=== PATIENT | female | born 1955 | race Asian ===

== ENCOUNTER 2017-09-15 09:21 | Outpatient (CLI) | payer OTHER ==
[~2017-09-15 09:21] MED LIST: AMLO5TAB PO; ASA LO-DOSE81 MG PO; B-122000 MCG PO; BENADRYL25 M1 PO; DICL75TA4 PO; GLIP10TA55 PO; HYDR-3182 PO; LISI20TA31 PO; METF500T PO; PRAVACHOL20 MG PO; RANI150T78 PO; ROBAXIN-750750 MG PO; SINGULAIR10 MG PO; TRAM50TA PO
== END 2017-09-15 11:00 | disposition home or self-care (01) ==
LOC: MAMMO 09:21
DX: Z12.31 Encounter for screening mammogram for malignant neoplasm of breast (principal)

== ENCOUNTER 2017-11-03 11:49 | Outpatient (CLI) | payer OTHER | END 2017-11-03 12:50 | disposition home or self-care (01) | LOC: LABW 11:49 | DX: B35.1 Tinea unguium (principal) | CPT/HCPCS: 36415; 84450; 84460 ==

== ENCOUNTER 2017-12-08 11:08 | Outpatient (CLI) | payer OTHER | END 2017-12-08 20:29 | disposition home or self-care (01) | LOC: LABW 11:08 | DX: B35.1 Tinea unguium (principal) | CPT/HCPCS: 36415; 84450; 84460 ==

== ENCOUNTER 2018-01-21 09:19 | Outpatient (CLI) | payer OTHER | END 2018-01-21 22:11 | disposition home or self-care (01) | LOC: LABW 09:19 | DX: B35.1 Tinea unguium (principal) | CPT/HCPCS: 36415; 84450; 84460 ==

== ENCOUNTER 2019-08-16 12:32 | Outpatient (CLI) | payer OTHER | END 2019-08-16 20:14 | disposition home or self-care (01) | LOC: MAMMO 12:32 | DX: Z12.31 Encounter for screening mammogram for malignant neoplasm of breast (principal) ==

== ENCOUNTER 2019-08-30 10:28 | Emergency (ER) | payer OTHER ==
[~2019-08-30] VITALS: Ht 160 cm; Wt 108.9 kg
[2019-08-30 10:46] VITALS: TEMP 100.1
[2019-08-30 12:15] LABS: PLATELET COUNT 250 K/uL (152-353)
[2019-08-30 12:48] LABS: POTASSIUM 3.4 mmol/L (3.6-5.2)
[2019-08-30 17:40] VITALS: BP 139/65
== END 2019-08-30 17:40 | disposition home or self-care (01) ==
LOC: ED 10:28
PROVIDERS: Student in an Organized Health Care Education/Training Program
DX: L03.115 Cellulitis of right lower limb (principal); R11.2 Nausea with vomiting, unspecified
CPT/HCPCS: 36415; 80053; 81000; 83605; 83690; 83735; 85027; 87040; 93005; 96360; 96365; 96375; 99284; J1885; J2405; J3475; Q9963

== ENCOUNTER 2019-09-02 13:12 | Emergency (ER) | payer OTHER ==
[~2019-09-02] VITALS: Ht 160 cm; Wt 108.9 kg
[2019-09-02 14:52] LABS: POTASSIUM 4.4 mmol/L (3.6-5.2)
[2019-09-02 15:02] LABS: PLATELET COUNT 257 K/uL (152-353)
[2019-09-02 21:50] VITALS: BP 132/79; TEMP 98.5
== END 2019-09-02 21:50 | disposition short-term general hospital (02) ==
LOC: ED 13:12
PROVIDERS: Emergency Medicine Emergency Medical Services
DX: L02.415 Cutaneous abscess of right lower limb (principal); N18.3 Chronic kidney disease, stage 3 (moderate); E11.9 Type 2 diabetes mellitus without complications; I10 Essential (primary) hypertension
CPT/HCPCS: 36415; 80053; 82962; 83605; 85027; 87040; 96360; 96361; 96365; 96375; 99284; J1815; J1885; J2543

== ENCOUNTER 2020-08-24 10:25 | Outpatient (CLI) | payer OTHER | END 2020-08-24 23:35 | disposition home or self-care (01) | LOC: RAD 10:25 | DX: I10 Essential (primary) hypertension (principal); E78.5 Hyperlipidemia, unspecified; E11.9 Type 2 diabetes mellitus without complications; E66.01 Morbid (severe) obesity due to excess calories; K21.9 Gastro-esophageal reflux disease without esophagitis; R53.83 Other fatigue; R06.83 Snoring; M54.9 Dorsalgia, unspecified ==

== ENCOUNTER 2020-09-07 09:33 | Outpatient (CLI) | payer OTHER | END 2020-09-07 19:28 | disposition home or self-care (01) | LOC: MAMMO 09:33 | DX: Z12.31 Encounter for screening mammogram for malignant neoplasm of breast (principal) ==

== ENCOUNTER 2021-04-16 11:35 | Emergency (ER) | payer OTHER ==
[~2021-04-16] VITALS: Ht 160 cm; Wt 107.5 kg
[2021-04-16 11:40] VITALS: TEMP 98
[2021-04-16 12:03] LABS: PLATELET COUNT 240 K/uL (152-353)
[2021-04-16 12:32] LABS: POTASSIUM 3.4 mmol/L (3.6-5.2); SODIUM 139 mmol/L (136-145)
[2021-04-16 13:24] VITALS: BP 183/79
== END 2021-04-16 13:35 | disposition home or self-care (01) ==
LOC: ED 11:35
PROVIDERS: Emergency Medicine Emergency Medical Services
DX: R07.89 Other chest pain (principal)
CPT/HCPCS: 36415; 80053; 84484; 85027; 93005; 96374; 99284; J1885

== ENCOUNTER 2021-06-18 09:00 | Outpatient (CLI) | payer OTHER ==
[2021-06-18 09:42] LABS: PLATELET COUNT 239 K/uL (152-353)
[2021-06-18 10:11] LABS: POTASSIUM 3.4 mmol/L (3.6-5.2)
== END 2021-06-18 19:25 | disposition home or self-care (01) ==
LOC: LABW 09:00 → EDBD 09:00 → LABW 19:25
PROVIDERS: ATTEND Internal Medicine
DX: N18.2 Chronic kidney disease, stage 2 (mild) (principal); E11.22 Type 2 diabetes mellitus with diabetic chronic kidney disease
CPT/HCPCS: 36415; 80053; 81000; 82043; 82306; 82330; 82570; 82607; 82728; 82746; 83036; 83516; 83540; 83735; 83970; 84100; 84155; 84165; 84166; 84439; 84443; 85027; 85652; 86038; 86140; 86160; 86225; 86255

== ENCOUNTER 2021-10-01 13:59 | Outpatient (CLI) | payer OTHER | END 2021-10-01 19:26 | disposition home or self-care (01) | LOC: MAMMO 13:59 | PROVIDERS: ATTEND Nurse Practitioner Family | DX: Z00.00 Encounter for general adult medical examination without abnormal findings (principal); Z00.8 Encounter for other general examination; Z71.82 Exercise counseling; Z13.31 Encounter for screening for depression; Z71.89 Other specified counseling; E66.01 Morbid (severe) obesity due to excess calories; Z68.41 Body mass index [BMI] 40.0-44.9, adult; N18.30 Chronic kidney disease, stage 3 unspecified; F41.9 Anxiety disorder, unspecified; E11.9 Type 2 diabetes mellitus without complications; Z12.31 Encounter for screening mammogram for malignant neoplasm of breast; Z13.820 Encounter for screening for osteoporosis; N95.8 Other specified menopausal and perimenopausal disorders ==

== ENCOUNTER 2021-11-01 12:43 | Outpatient (CLI) | payer OTHER | END 2021-11-01 19:01 | disposition home or self-care (01) | LOC: MAMMO 12:43 → EDBD 12:43 → MAMMO 13:00 | PROVIDERS: ATTEND Nurse Practitioner Family | DX: R92.8 Other abnormal and inconclusive findings on diagnostic imaging of breast (principal); T14.8XXA Other injury of unspecified body region, initial encounter; Y92.9 Unspecified place or not applicable ==

== ENCOUNTER 2022-02-14 11:19 | Outpatient (CLI) | payer OTHER ==
[2022-02-14 11:47] LABS: PLATELET COUNT 197 K/uL (152-353)
[2022-02-14 14:46] LABS: POTASSIUM 3.6 mmol/L (3.6-5.2)
== END 2022-02-14 20:41 | disposition home or self-care (01) ==
LOC: LABW 11:19
PROVIDERS: ATTEND Nurse Practitioner Family
DX: D64.89 Other specified anemias (principal); E11.9 Type 2 diabetes mellitus without complications; N18.30 Chronic kidney disease, stage 3 unspecified; R82.998 Other abnormal findings in urine
CPT/HCPCS: 80053; 81000; 82043; 82306; 82570; 83036; 83690; 84439; 84443; 85027; 87077; 87086; 87088; 87186

== ENCOUNTER 2022-02-25 09:31 | Outpatient (CLI) | payer OTHER ==
[2022-02-25 10:06] LABS: PLATELET COUNT 182 K/uL (152-353)
== END 2022-02-25 18:52 | disposition home or self-care (01) ==
LOC: LABW 09:31
PROVIDERS: ATTEND Internal Medicine Hematology & Oncology
DX: C50.911 Malignant neoplasm of unspecified site of right female breast (principal)
CPT/HCPCS: 36415; 80053; 85027

== ENCOUNTER 2022-03-20 10:32 | Outpatient (CLI) | payer OTHER ==
[2022-03-20 11:11] LABS: PLATELET COUNT 156 K/uL (152-353)
[2022-03-20 11:22] LABS: POTASSIUM 3.6 mmol/L (3.6-5.2)
== END 2022-03-20 19:17 | disposition home or self-care (01) ==
LOC: LABW 10:32
PROVIDERS: ATTEND Internal Medicine
DX: J06.9 Acute upper respiratory infection, unspecified (principal); E78.49 Other hyperlipidemia; E11.9 Type 2 diabetes mellitus without complications; D64.89 Other specified anemias; G47.00 Insomnia, unspecified; C50.919 Malignant neoplasm of unspecified site of unspecified female breast; E55.9 Vitamin D deficiency, unspecified; N18.31 Chronic kidney disease, stage 3a; I12.9 Hypertensive chronic kidney disease with stage 1 through stage 4 chronic kidney disease, or unspecified chronic kidney disease; E66.9 Obesity, unspecified
CPT/HCPCS: 36415; 80053; 80061; 81000; 82330; 82570; 83735; 83970; 84100; 84156; 85027

== ENCOUNTER 2022-04-24 12:07 | Inpatient (IN) | payer OTHER ==
[~2022-04-24] VITALS: Ht 160 cm; Wt 107.7 kg
[~2022-04-24 12:07] MED LIST changes: -AMLO5TAB PO; +AMLODIPINE BESYLATE PO; +ERYTOIN OPTH
[2022-04-24 12:27] VITALS: BP 121/61; TEMP 97.3
[2022-04-24 13:48] LABS: POTASSIUM 3.9 mmol/L (3.6-5.2)
[2022-04-24 13:55] LABS: PLATELET COUNT 201 K/uL (152-353)
[2022-04-24 14:04] LABS: PARTIAL THROMBOPLASTIN TIME 30.3 SECONDS (24.5-33.6)
[2022-04-24 14:30] VITALS: BP 138/64
[2022-04-24 17:32] VITALS: BP 147/73; TEMP 98.6; Ht 160 cm; Wt 107.7 kg
[2022-04-24] MEDS ORDERED: ONDA4TAB3 PO (18:36)
[2022-04-24] MEDS ORDERED: HYZAAR1 TA2 PO (18:37)
[2022-04-24] MEDS ORDERED: GLIPIZIDE ER PO (18:41)
[2022-04-24] MEDS ORDERED: INSU100I2 SC (18:43)
[2022-04-24] MEDS ORDERED: HYDROCHLOROT12.5 M1 PO (18:44)
[2022-04-24] MEDS ORDERED: METO-837 PO (18:46)
[2022-04-24] MEDS ORDERED: PRAVASTATIN PO (18:48)
[2022-04-24] MEDS ORDERED: METFORMIN HYD1000 MG PO (18:49)
[2022-04-24] MEDS ORDERED: AMBIEN5 MG PO (18:50)
[2022-04-24] MEDS ORDERED: CYCLOBENZAPRINE5 MG PO (18:50)
[2022-04-24 19:56] VITALS: BP 127/57; TEMP 100.6
[2022-04-24 23:49] VITALS: BP 117/64; TEMP 100
[2022-04-25 03:58] VITALS: BP 98/52; TEMP 100.5
[2022-04-25 08:00] VITALS: BP 103/51; TEMP 98.5
[2022-04-25 08:57] LABS: PLATELET COUNT 204 K/uL (152-353)
[2022-04-25 09:08] LABS: POTASSIUM 4.1 mmol/L (3.6-5.2)
[2022-04-25 12:00] VITALS: BP 103/51; TEMP 98.5
[2022-04-25 16:00] VITALS: BP 118/58; TEMP 99.2
[2022-04-25 20:00] VITALS: BP 119/60; TEMP 98.7
[2022-04-25 23:57] VITALS: BP 107/56; TEMP 99
[2022-04-26 04:05] VITALS: BP 133/55; TEMP 98.8
[2022-04-26 07:06] LABS: PLATELET COUNT 282 K/uL (152-353)
[2022-04-26 07:13] LABS: POTASSIUM 3.9 mmol/L (3.6-5.2)
[2022-04-26 08:00] VITALS: BP 137/72; TEMP 98.1
[2022-04-26 16:00] VITALS: BP 125/58; TEMP 98.5
[2022-04-26 20:00] VITALS: BP 134/65; TEMP 98.4
[2022-04-27] VITALS: BP 160/77; TEMP 98.7
[2022-04-27 04:00] VITALS: BP 134/59; TEMP 98.7
[2022-04-27 05:10] LABS: PLATELET COUNT 266 K/uL (152-353)
[2022-04-27 05:11] LABS: POTASSIUM 3.5 mmol/L (3.6-5.2)
[2022-04-27 08:00] VITALS: BP 149/68; TEMP 98.3
[2022-04-27 12:04] VITALS: BP 125/69; TEMP 98.6
[2022-04-27 16:01] VITALS: BP 131/62; TEMP 98.4
[2022-04-27 20:00] VITALS: BP 137/65; TEMP 98.3
[2022-04-28] VITALS: BP 130/71; TEMP 98.4
[2022-04-28 04:00] VITALS: BP 146/69; TEMP 99
[2022-04-28 05:16] LABS: PLATELET COUNT 285 K/uL (152-353)
[2022-04-28 05:27] LABS: POTASSIUM 3.3 mmol/L (3.6-5.2)
[2022-04-28 08:02] VITALS: BP 164/79; TEMP 98.2
[2022-04-28 12:00] VITALS: BP 159/76; TEMP 98.4
[2022-04-28 16:00] VITALS: BP 136/65; TEMP 98.1
[2022-04-28 20:00] VITALS: BP 149/72; TEMP 98.2
[2022-04-29] VITALS: BP 175/77; TEMP 98.2
[2022-04-29 03:58] VITALS: BP 146/47; TEMP 98.6
[2022-04-29 08:09] VITALS: BP 162/69; TEMP 98.6
[2022-04-29 12:00] VITALS: BP 160/76; TEMP 97.8
[2022-04-29 16:00] VITALS: BP 158/72; TEMP 98.4
[2022-04-29 19:45] VITALS: BP 145/77; TEMP 98.1
[2022-04-30 00:07] VITALS: BP 151/75; TEMP 98.1
[2022-04-30 03:57] VITALS: BP 142/75; TEMP 98.4
[2022-04-30 05:50] LABS: POTASSIUM 2.9 mmol/L (3.6-5.2)
[2022-04-30 06:24] LABS: PLATELET COUNT 280 K/uL (152-353)
[2022-04-30 08:00] VITALS: BP 162/74; TEMP 98
[2022-04-30 12:00] VITALS: BP 141/71; TEMP 98.5
[2022-04-30 16:00] VITALS: BP 168/80; TEMP 98.8
[2022-04-30 19:34] VITALS: BP 132/69; TEMP 98.1
[2022-05-01 00:06] VITALS: BP 149/80; TEMP 98.5
[2022-05-01 03:57] VITALS: BP 148/76; TEMP 99
[2022-05-01 08:00] VITALS: BP 151/76; TEMP 98.6
[2022-05-01 12:00] VITALS: BP 145/58; TEMP 97.9
[2022-05-01] MEDS ORDERED: DOXYCYCLINE100 MG PO (15:55)
[2022-05-01 16:00] VITALS: BP 167/80; TEMP 98.2
== END 2022-05-01 16:45 | disposition home or self-care (01) | DRG 683 ==
LOC: ED 12:07 → MED/SURG 15:00 → UNDODEPER 04-25 16:50 → MED/SURG 05-01 16:45
PROVIDERS: Hospitalist; ADMIT Internal Medicine; ATTEND Internal Medicine
DX: N17.8 Other acute kidney failure (principal); L02.31 Cutaneous abscess of buttock; D61.818 Other pancytopenia; D84.89 Other immunodeficiencies; E86.0 Dehydration; C50.919 Malignant neoplasm of unspecified site of unspecified female breast; K21.9 Gastro-esophageal reflux disease without esophagitis; E11.9 Type 2 diabetes mellitus without complications; D64.89 Other specified anemias; E87.6 Hypokalemia; D72.828 Other elevated white blood cell count
CPT/HCPCS: 36415; 80048; 80053; 80202; 81000; 81002; 82550; 82948; 83735; 83880; 84484; 85007; 85027; 85610; 85730; 87635; 93005; 96360; 96361; 96365; 96367; 96372; 96374; 96375; J1642; J1650; J1815; J2405; J2543; J3370; J3475; J3490; U0003

== ENCOUNTER 2022-05-13 11:03 | Outpatient (CLI) | payer OTHER ==
[~2022-05-13 11:03] MED LIST changes: +AMBIEN5 MG PO; +CYCLOBENZAPRINE5 MG PO; +DOXYCYCLINE100 MG PO; +GLIPIZIDE ER PO; +HYDROCHLOROT12.5 M1 PO; +HYZAAR1 TA2 PO; +INSU100I2 SC; +METFORMIN HYD1000 MG PO; +METO-837 PO; +ONDA4TAB3 PO; +PRAVASTATIN PO
== END 2022-05-13 19:01 | disposition home or self-care (01) ==
LOC: US 11:03
PROVIDERS: ATTEND Nurse Practitioner Family
DX: M79.601 Pain in right arm (principal); S40.021A Contusion of right upper arm, initial encounter; R60.0 Localized edema; X58.XXXA Exposure to other specified factors, initial encounter; Y93.89 Activity, other specified

== ENCOUNTER 2022-07-22 09:10 | Outpatient (CLI) | payer OTHER ==
[2022-07-22 09:57] LABS: PLATELET COUNT 241 K/uL (152-353)
[2022-07-22 11:35] LABS: POTASSIUM 3.4 mmol/L (3.6-5.2)
== END 2022-07-22 18:49 | disposition home or self-care (01) ==
LOC: MAMMO 09:10 → LABW 09:10 → MAMMO 09:30
PROVIDERS: ATTEND Surgery
DX: N17.9 Acute kidney failure, unspecified (principal); D64.89 Other specified anemias; C50.919 Malignant neoplasm of unspecified site of unspecified female breast; N18.30 Chronic kidney disease, stage 3 unspecified; E11.9 Type 2 diabetes mellitus without complications; K21.9 Gastro-esophageal reflux disease without esophagitis; E78.49 Other hyperlipidemia; I12.9 Hypertensive chronic kidney disease with stage 1 through stage 4 chronic kidney disease, or unspecified chronic kidney disease; N64.59 Other signs and symptoms in breast
CPT/HCPCS: 36415; 80053; 80061; 81002; 82043; 82306; 82570; 83036; 84436; 84443; 85027; G0279

== ENCOUNTER 2022-08-15 09:49 | Outpatient (CLI) | payer OTHER ==
[2022-08-15 10:44] LABS: PLATELET COUNT 208 K/uL (152-353)
[2022-08-15 10:56] LABS: POTASSIUM 3.6 mmol/L (3.6-5.2)
== END 2022-08-15 20:50 | disposition home or self-care (01) ==
LOC: LABW 09:49
PROVIDERS: ATTEND Nurse Practitioner Family
DX: J06.9 Acute upper respiratory infection, unspecified (principal); N18.31 Chronic kidney disease, stage 3a; Z79.899 Other long term (current) drug therapy
CPT/HCPCS: 36415; 80053; 81002; 82043; 82306; 82330; 82570; 83036; 83735; 83970; 84100; 84156; 84439; 84443; 85027

== ENCOUNTER 2022-10-28 09:31 | Outpatient (CLI) | payer OTHER | END 2022-10-28 19:36 | disposition home or self-care (01) | LOC: MAMMO 09:31 | PROVIDERS: ATTEND Nurse Practitioner Family | DX: Z00.8 Encounter for other general examination (principal); Z71.89 Other specified counseling; Z71.82 Exercise counseling; Z13.31 Encounter for screening for depression; Z86.79 Personal history of other diseases of the circulatory system; Z13.6 Encounter for screening for cardiovascular disorders; Z09 Encounter for follow-up examination after completed treatment for conditions other than malignant neoplasm; C50.911 Malignant neoplasm of unspecified site of right female breast; N64.59 Other signs and symptoms in breast | CPT/HCPCS: G0279 ==

== ENCOUNTER 2022-12-12 11:08 | Outpatient (CLI) | payer OTHER ==
[2022-12-12 11:43] LABS: PLATELET COUNT 269 K/uL (152-353)
[2022-12-12 11:57] LABS: POTASSIUM 3.6 mmol/L (3.6-5.2)
== END 2022-12-12 19:00 | disposition home or self-care (01) ==
LOC: LABW 11:08
PROVIDERS: ATTEND Internal Medicine
DX: N18.31 Chronic kidney disease, stage 3a (principal)
CPT/HCPCS: 36415; 80053; 81002; 82308; 82570; 83735; 83970; 84100; 84156; 85027

== ENCOUNTER 2023-03-27 12:26 | Outpatient (CLI) | payer OTHER | END 2023-03-27 17:00 | disposition home or self-care (01) | LOC: RESP 12:26 | PROVIDERS: ATTEND Internal Medicine Cardiovascular Disease | DX: R07.89 Other chest pain (principal); I10 Essential (primary) hypertension ==

== ENCOUNTER 2023-04-15 15:09 | Emergency (ER) | payer OTHER ==
[~2023-04-15] VITALS: Ht 160 cm; Wt 104.3 kg
[2023-04-15 15:13] VITALS: TEMP 97.9
[2023-04-15 16:33] VITALS: BP 160/86
== END 2023-04-15 17:16 | disposition home or self-care (01) ==
LOC: ED 15:09
DX: S80.02XA Contusion of left knee, initial encounter (principal); S80.01XA Contusion of right knee, initial encounter; J32.9 Chronic sinusitis, unspecified; W19.XXXA Unspecified fall, initial encounter
CPT/HCPCS: 99283

== ENCOUNTER 2023-05-14 10:33 | Outpatient (CLI) | payer OTHER ==
[2023-05-14 11:02] LABS: PLATELET COUNT 278 K/uL (152-353)
[2023-05-14 11:29] LABS: POTASSIUM 3.3 mmol/L (3.6-5.2)
== END 2023-05-14 22:10 | disposition home or self-care (01) ==
LOC: LABW 10:33
PROVIDERS: ATTEND Internal Medicine
DX: R06.02 Shortness of breath (principal); Z79.899 Other long term (current) drug therapy; N18.31 Chronic kidney disease, stage 3a; E11.22 Type 2 diabetes mellitus with diabetic chronic kidney disease
CPT/HCPCS: 36415; 80053; 81002; 82330; 82570; 83036; 83735; 83880; 83970; 84100; 84156; 84439; 84443; 85027

== ENCOUNTER 2023-06-16 08:43 | Outpatient (CLI) | payer OTHER | END 2023-06-16 19:10 | disposition home or self-care (01) | LOC: US 08:43 | PROVIDERS: ATTEND Nurse Practitioner Family | DX: N18.30 Chronic kidney disease, stage 3 unspecified (principal); R06.02 Shortness of breath | CPT/HCPCS: 36415; 80048; 80061; 83880 ==

== ENCOUNTER 2023-07-02 13:36 | Outpatient (CLI) | payer OTHER | END 2023-07-02 19:09 | disposition home or self-care (01) | LOC: RAD 13:36 | PROVIDERS: ATTEND Nurse Practitioner Family | DX: Z95.828 Presence of other vascular implants and grafts (principal) ==